=== PATIENT | male | born 1980 | race Caucasian/White ===

== ENCOUNTER → 2021-09-30 | Outpatient (REF) ==
[~2021-09-30] MED LIST: AGM875T PO; METH4TAB PO; TRIA16.5 NS
--- NOTE | 2021-09-30 13:14 | Diagnostic Imaging Report ---
INDICATION: Elbow pain status post injury. COMPARISON: None. FINDINGS: Three views of the left elbow show no fractures, dislocations, or other acute bony abnormalities identified. Joint spaces are well maintained throughout. The soft tissues appear unremarkable. No radiopaque foreign bodies are identified. IMPRESSION: No acute fractures or dislocations of the left elbow. Dictated by: Dictated on workstation # [id number]
--- NOTE | 2021-09-30 13:15 | Diagnostic Imaging Report ---
INDICATION: Fall with left shoulder injury. TIME OF EXAM: 12:57 p.m. FINDINGS: Three views of the left shoulder were obtained. Glenohumeral and acromioclavicular alignment is normal. Acromiohumeral space is normal. No fracture or dislocation is detected. IMPRESSION: No acute bony abnormality is detected. Dictated by: Dictated on workstation # [id number]
== END | disposition home or self-care (01) ==
LOC: OCC 12:48
PROVIDERS: ATTEND Nurse Practitioner Family
DX: Z01.818 Encounter for other preprocedural examination (principal)
CPT/HCPCS: 73030; 73080

== ENCOUNTER → 2022-06-10 | Outpatient (CLI) | payer OTHER ==
[~2022-06-10] MED LIST changes: +CATHETER FLUSH 10 ML SYR IV PRN; +HOLD METFORMIN - RECEIVED CONTRAST 20 ML VIAL IV SCH; +IOHEXOL 350 MG/ML 100 ML (OMNIPAQUE 350) VIAL IV ONE; +NS 100 ML (IVPB) BAG IV ONE
--- NOTE | 2022-06-10 09:13 | Diagnostic Imaging Report ---
INDICATION: Shortness of air EXAMINATION: Two view chest 06/10/2022. FINDINGS: The cardiomediastinal silhouette is unremarkable. The pulmonary vasculature is within normal limits. The lungs and pleural spaces are clear. IMPRESSION: No evidence of an acute cardiopulmonary process. Dictated by: Dictated on workstation # [id number]
--- NOTE | 2022-06-10 10:07 | Diagnostic Imaging Report ---
PROCEDURE: CT abdomen and pelvis with contrast. TECHNIQUE: Multiple contiguous axial images were obtained through the abdomen and pelvis after administration of intravenous contrast. Auto Exposure Controls were utilized during the CT exam to meet ALARA standards for radiation dose reduction. All CT scans use one or more of the following dose optimizing techniques: automated exposure control, MA and/or KvP adjustment based on patient size and exam type or iterative reconstruction. INDICATION: History of diverticulitis, now with diarrhea and nausea and blood per rectum. No priors. FINDINGS: There are sigmoid diverticula present. There was, however, no convincing evidence for active diverticulitis. The appendix is air-containing and normal. No pericolonic or perirectal edema. No suspicious or segmental bowel wall thickening. The unobstructed small intestine appeared normal. Urinary bladder unremarkable. No pneumatosis. No free gas. No ascites, abscess, hematoma or acute fluid collection. Unobstructed urinary tracts normal. Liver, spleen, adrenals, pancreas, gallbladder and biliary ducts unremarkable. There is grade 1 anterolisthesis of L5 on S1 with advanced spondylosis and well corticated chronic appearing bilateral L5 spondylolysis defects. No acute appearing bony pathology. The lung bases clear. IMPRESSION: 1. Sigmoid diverticulosis without barbara diverticulitis. Normal appendix. No small or large bowel obstruction or segmental inflammatory changes. 2. Solid viscous viscera appeared normal. There is chronic L5 spondylolysis defects, spondylosis and grade 1 L5 on S1 anterolisthesis. 3. No mass, abscess, hemorrhage or perforation. No obstructive features. Dictated by: Dictated on workstation # [id number]
== END ==
LOC: RAD 07:51
PROVIDERS: ATTEND Family Medicine
DX: K57.30 Diverticulosis of large intestine without perforation or abscess without bleeding (principal); K57.92 Diverticulitis of intestine, part unspecified, without perforation or abscess without bleeding; M47.816 Spondylosis without myelopathy or radiculopathy, lumbar region; M47.817 Spondylosis without myelopathy or radiculopathy, lumbosacral region; M43.17 Spondylolisthesis, lumbosacral region
CPT/HCPCS: 71046; 74177